=== PATIENT | male | born 1970 | race Two or more races ===

== ENCOUNTER 2019-04-23 16:52 | Emergency (ER) | payer SELFPAY ==
[~2019-04-23] VITALS: Ht 165.1 cm; Wt 72.6 kg
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
[2019-04-23 17:09] VITALS: BP 126/76
--- NOTE | 2019-04-23 17:57 | NUR ---
ED Nurse Note: PT TO XRAY.
[2019-04-23] MEDS ORDERED: Methocarbamol 750mg tab ORAL ONE (18:00)
[2019-04-23] MEDS ORDERED: Acetaminophen 500mg (ES) tab ORAL ONE (18:00)
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
--- NOTE | 2019-04-23 19:04 | Diagnostic Imaging Report ---
Indication: Neck pain Technique: 3 views of the cervical spine Comparison: none Findings: Exam is limited, as T1 and the cervicothoracic junction is not visualized. No prevertebral soft tissue swelling. Normal bony alignment. Vertebral body heights are preserved. Disc spaces are preserved. There are degenerative proliferative changes of the lower cervical spine noted. No acute fractures. No dislocations. Impression: Limited exam, as described. No definite acute bony trauma This agrees with the preliminary interpretation provided overnight by [facility].
--- NOTE | 2019-04-23 19:05 | Diagnostic Imaging Report ---
Indication: Back pain Technique: 3 views of the lumbar spine Comparison: None Findings: Vertebral body heights are preserved. Disc spaces are preserved. Pedicles are intact. Sacral arches are preserved. Sacroiliac joint spaces are preserved. The soft tissues are unremarkable Impression: Negative This agrees with the preliminary interpretation provided overnight by [facility].
[2019-04-23] MEDS ORDERED: ROBAXIN-750750 MG PO (19:07)
[2019-04-23] MEDS ORDERED: IBUPROFEN600 MG ORAL (19:07)
--- NOTE | 2019-04-23 19:09 | NUR ---
ED Nurse Note: REPORT GIVEN TO [facility].
[2019-04-23 19:20] VITALS: BP 126/76
--- NOTE | 2019-04-23 19:20 | NUR ---
ER DISCHARGE NOTE: Patient is cleared to be discharged per ERMD, pt is aox4, on room air, with stable vital signs. pt was given dc and prescription instructions, pt was able to verbalize understanding, pt id band removed. pt is able to ambulate with steady gait. pt took all belongings.
== END 2019-04-23 20:20 | disposition home or self-care (01) ==
LOC: EMR 19:05
DX: S16.1XXA Strain of muscle, fascia and tendon at neck level, initial encounter (principal); S39.012A Strain of muscle, fascia and tendon of lower back, initial encounter; V43.52XA Car driver injured in collision with other type car in traffic accident, initial encounter; Y92.410 Unspecified street and highway as the place of occurrence of the external cause
CPT/HCPCS: 72020; 72040; 99283